=== PATIENT | female | born 1970 | race Caucasian/White ===

== ENCOUNTER 2017-07-20 10:05 | Emergency (ER) | payer OTHER, BC, SELFPAY ==
[2017-07-20 10:06] VITALS: BP 133/83; PULSE 106; RESP 18; TEMP 37.7; O2SAT 99; BMI 31.6
--- NOTE | 2017-07-20 10:21 | RAD_ITS ---
STUDY: X-RAY CHEST REASON FOR EXAM: Female, 47 years old. Cough and fever. TECHNIQUE: PA and lateral views of the chest. COMPARISON: None. FINDINGS: The lungs are clear and expanded. There is no demonstrated pleural abnormality. Normal size heart. Normal mediastinum and kodak. Normal visualized pulmonary arteries. Normal visualized aortic arch and descending thoracic aorta. Normal visualized thoracic spine. Normal visualized ribs, clavicles, and shoulders. There is no demonstrated abnormality of the visualized soft tissue structures of the upper abdomen. RAD/Chest PA and Lateral IMPRESSION: Normal x-ray examination of the chest. Electronically Signed: Dominguez Yousif MD at 11:07 EDT Tel [phone], Service support ,
--- NOTE | 2017-07-20 10:22 | ED.VISSUMM ---
- ER Visit Summary Date of Service: 07/20/17 Chief Complaint: Cough, fever and chills History of Present Illness: The patient is a 47 F having M past medical history. Patient states she started getting a sore throat yesterday and a fever as high as 100. Today was coughing and states I feel like hell. Denies nausea, vomiting, diarrhea or dysuria. No abdominal pain. Physical Examination: Middle-aged female no acute distress vital signs are stable temperature 99.9 pulse is 90% room air no signs of hypoxia. No distress. H EENT exam normal. Posterior pharynx normal. Erythema no exudate. No trouble swallowing or breathing. Neck nontender no meningismus. No lymphadenopathy. Lungs dry hacking cough but no rales, rhonchi or wheezing. Equal symmetrical. Heart regular rhythm rate about 105 no murmur. Chest wall nontender. Abdomen soft nontender. Back nontender. Moving all 4 extremities. Neurovascular intact. Calves nontender no edema no cords. Skin no rash. Neurologic exam normal. Test Results: Chest x-ray AP and lateral views no acute abnormality. No pneumonia. Emergency Department Course and Treatment: Treated with p.o. Tylenol. Treatment Plan: Exam unchanged at 1108. Patient's history and exam and sudden onset of symptoms are consistent with influenza. Disposition: Discharge Impression: Acute viral respiratory tract infection (Influenza) This note was generated with Centrafuse dictation software. It may contain incorrect words, spelling, and punctuation that were not noted in review of the chart prior to signing ED Disposition - Plan for ED Patient: Chief Complaint: Fever Referrals: Ferny Garvin DO [Primary Care Provider] -
[2017-07-20] MEDS: Acetaminophen 500 MG Tablet 1000 MG PO (10:28)
--- NOTE | 2017-07-20 11:09 | ED.DEP ---
ED Disposition - Plan for ED Patient: Disposition: Home or Assisted Living Chief Complaint: Fever Instructions: ED Flu Referrals: Ferny Garvin DO [Primary Care Provider] - 3-5 Days if not improving Additional Instructions: Plenty of fluids and rest. Alternate Tylenol and Motrin every 2-4 hours for fever and body aches. You have a viral respiratory infection most likely influenza. This should progressively started getting better in the next 24-72 hours. No signs of pneumonia and your chest x-ray or on your lung exam.
== END 2017-07-20 11:28 | disposition home or self-care (01) ==
PROVIDERS: Emergency Provider Emergency Medicine; Family Provider Family Medicine; PCP Family Medicine
DX: J11.1 Influenza due to unidentified influenza virus with other respiratory manifestations (principal)
CPT/HCPCS: 71046; 99282

== ENCOUNTER → 2018-01-29 12:36 | Outpatient (CLI) | payer OTHER, BC, SELFPAY ==
--- NOTE | 2018-01-29 13:00 | MRI_ITS ---
STUDY: MRI BRAIN WITHOUT CONTRAST REASON FOR EXAM: Female, 47 years old. New onset of retro-orbital headaches TECHNIQUE: Standardized multiplanar fat and water weighted pulse sequences were obtained. COMPARISON: None. FINDINGS: Normal size of the ventricles and extra-axial spaces for the patient's age. Normal white matter tracts of the supratentorial brain. Normal bilateral basal ganglia. Normal thalami. There is no extra-axial fluid accumulation. Normal flow voids within the major intracranial circulation suggesting patency by spin echo criteria. Partial empty sella deformity of uncertain clinical significance.. Normal, infundibular stalk, optic chiasm and hypothalamus. Normal tectal plate and pineal gland. Normal midbrain, alysia and medulla. Normal cerebellum. Normal basal cisterns. Normal bilateral temporal bones. Normal bilateral internal auditory canals. No demonstrated orbital abnormality, within the constraints of a routine brain study. There is minor mucosal thickening of the maxillary and ethmoid sinuses. Normal calvarium and skull base. Normal visualized soft tissue structures. Normal visualized upper cervical spine. MRI/Brain without Contrast IMPRESSION: Partial empty sella deformity of uncertain clinical significance otherwise normal unenhanced MRI of the brain. Minor chronic mucosal thickening of the maxillary and ethmoid sinuses. Electronically Signed: Edwin Locke MD at 19:11 EST , Service support ,
--- OUTSIDE RECORDS SUMMARY | 2018-03-26 11:27 | XMS RPT_ITS ---
:1970 Author Organization [facility] Care Team Providers Name Role Phone Ferny Garvin Primary Care Unavailable Edwin Woods Attending Unavailable Ferny Garvin Attending Unavailable Ferny Garvin Referring Unavailable Ferny Garvin Primary Care Unavailable Noah Jones Consulting Unavailable PROBLEMS PROBLEMS No Problem Records FoundPROCEDURES PROCEDURES No Procedure Records FoundRESULTS RESULTS BRAIN WITHOUT Observed: 01/29/2018 Status: F Source: [place] CONTRAST 12:40 PM [facility] REPOSITORY [facility] Imaging Services [address] [place] [address] Brain without Contrast MR#: [id number] Acct: [id number] Name: GURDEEP GRADY Rep #: [id number] : 1970 F 47 From: Edwin Locke MD PCP: Ferny Garvin DO Status: REG CLI Study: Brain without Contrast Date of Exam: 01/29/18 Exam# [id number] Ordering Dr: Ferny Garvin DO STUDY: MRI BRAIN WITHOUT CONTRAST REASON FOR EXAM: Female, 47 years old. New onset of retro-orbital headaches TECHNIQUE: Standardized multiplanar fat and water weighted pulse sequences were obtained. COMPARISON: None. FINDINGS: Normal size of the ventricles and extra-axial spaces for the patient's age. Normal white matter tracts of the supratentorial brain. Normal bilateral basal ganglia. Normal thalami. There is no extra-axial fluid accumulation. Normal flow voids within the major intracranial circulation suggesting patency by spin echo criteria. Partial empty sella deformity of uncertain clinical significance.. Normal, infundibular stalk, optic chiasm and hypothalamus. Normal tectal plate and pineal gland. Normal midbrain, alysia and medulla. Normal cerebellum. Normal basal cisterns. Normal bilateral temporal bones. Normal bilateral internal auditory canals. No demonstrated orbital abnormality, within the constraints of a routine brain study. There is minor mucosal thickening of the maxillary and ethmoid sinuses. Normal calvarium and skull base. Normal visualized soft tissue structures. Normal visualized upper cervical spine. MRI/Brain without Contrast IMPRESSION: Partial empty sella deformity of uncertain clinical significance otherwise normal unenhanced MRI of the brain. Minor chronic mucosal thickening of the maxillary and ethmoid sinuses. Electronically Signed: Edwin Locke MD at 19:11 EST , Service support , CC: Ferny Garvin DO Community Education Specialist: Signed EMERGENCY DEPARTMENT Observed: 07/20/2017 Status: F Source: ANCHORAGE SUMMARY 4:38 PM [facility] REPOSITORY [facility] Medical Records Department [address] [place] [address] Emergency Department Summary 07/20/17 1022 MR#: [id number] Acct: [id number] Name: GURDEEP GRADY Rep #: [id number] : 1970 47 From: Edwin Woods MD PCP: Ferny Garvin DO Status: DEP ER - ER Visit Summary Date of Service: 07/20/17 Chief Complaint: Cough, fever and chills History of Present Illness: The patient is a 47 F having M past medical history. Patient states she started getting a sore throat yesterday and a fever as high as 100. Today was coughing and states I feel like hell. Denies nausea, vomiting, diarrhea or dysuria. No abdominal pain. Physical Examination: Middle-aged female no acute distress vital signs are stable temperature 99.9 pulse is 90% room air no signs of hypoxia. No distress. H EENT exam normal. Posterior pharynx normal. Erythema no exudate. No trouble swallowing or breathing. Neck nontender no meningismus. No lymphadenopathy. Lungs dry hacking cough but no rales, rhonchi or wheezing. Equal symmetrical. Heart regular rhythm rate about 105 no murmur. Chest wall nontender. Abdomen soft nontender. Back nontender. Moving all 4 extremities. Neurovascular intact. Calves nontender no edema no cords. Skin no rash. Neurologic exam normal. Test Results: Chest x-ray AP and lateral views no acute abnormality. No pneumonia. Emergency Department Course and Treatment: Treated with p.o. Tylenol. Treatment Plan: Exam unchanged at 1108. Patient's history and exam and sudden onset of symptoms are consistent with influenza. Disposition: Discharge Impression: Acute viral respiratory tract infection (Influenza) This note was generated with Yatango dictation software. It may contain incorrect words, spelling, and punctuation that were not noted in review of the chart prior to signing ED Disposition - Plan for ED Patient: Chief Complaint: Fever Referrals: Ferny Garvin, DO [Primary Care Provider] - What to do if you have Problems For any increased pain, shortness of breath, bleeding, nausea or vomiting, chest pain, or any unexpected problems, contact your Primary Care Provider. Call [facility] ([phone]) or report to the closest Emergency Room. Call 911 if necessary. 07/20/17 2748 <Electronically signed by Edwin Woods MD> Date Edwin Woods MD Cosigner Signature (If Indicated): Date CC: Ferny Garvin DO DISCHARGE INSTRUCTION Observed: 07/20/2017 Status: F Source: [facility]AGE 4:38 PM [facility] Medical Records Department [address] [place] [address] Discharge Instruction 07/20/17 1109 MR#: [id number] Acct: [id number] Name: GURDEEP GRADY Rep #: [id number] : 1970 47 From: Edwin Woods MD PCP: eFrny Garvin DO Status: [facility] ER ED Disposition - Plan for ED Patient: Disposition: Home or Assisted Living Chief Complaint: Fever Instructions: ED Flu Referrals: Ferny Garvin DO [Primary Care Provider] - 3-5 Days if not improving Additional Instructions: Plenty of fluids and rest. Alternate Tylenol and Motrin every 2-4 hours for fever and body aches. You have a viral respiratory infection most likely influenza. This should progressively started getting better in the next 24-72 hours. No signs of pneumonia and your chest x-ray or on your lung exam. What to do if you have Problems For any increased pain, shortness of breath, bleeding, nausea or vomiting, chest pain, or any unexpected problems, contact your Primary Care Provider. Call [employer] [facility] ([phone]) or report to the closest Emergency Room. Call 911 if necessary. 07/20/17 1638 <Electronically signed by Edwin Woods MD> Date Edwin Woods MD Cosigner Signature (If Indicated): Date CC: Ferny Garvin DO CHEST PA AND LATERAL Observed: 07/20/2017 Status: F Source: ANCHORAGE 10:21 AM [facility] REPOSITORY [facility] Imaging Services [address] [place] [address] Chest PA and Lateral MR#: [id number] Acct: [id number] Name: GURDEEP GRADY Jaxon Rep #: [id number] : 1970 F 47 From: Dominguez Yousif MD PCP: Ferny Garvin DO Status: REG ER Study: Chest PA and Lateral Date of Exam: 07/20/17 Exam# [id number] Ordering Dr: Edwin Woods MD STUDY: X-RAY CHEST REASON FOR EXAM: Female, 47 years old. Cough and fever. TECHNIQUE: PA and lateral views of the chest. COMPARISON: None. FINDINGS: The lungs are clear and expanded. There is no demonstrated pleural abnormality. Normal size heart. Normal mediastinum and kodak. Normal visualized pulmonary arteries. Normal visualized aortic arch and descending thoracic aorta. Normal visualized thoracic spine. Normal visualized ribs, clavicles, and shoulders. There is no demonstrated abnormality of the visualized soft tissue structures of the upper abdomen. RAD/Chest PA and Lateral IMPRESSION: Normal x-ray examination of the chest. Electronically Signed: Dominguez Yousif MD at 11:07 EDT Tel [phone], Service support , CC: Ferny Garvin DO; Edwin Woods MD Community Education Specialist: Signed ALLERGIES ALLERGIES DATE TYPE / CODE NAME / CODE REACTION SEVERITY SOURCE 07/20/2017 Drug morphine/F00 Hives Unknown [facility] Allergy/4160 [id number]([facility] [address]451(SNOMED RM) Repository CT) ENCOUNTERS ENCOUNTERS ADMIT/DISCHARGE ACCOUNT ADMITTING ENCOUNTER LOCATION SOURCE NUMBER CLASS 01/29/2018 [id number] Ambulatory [place] 1 [facility] ing:MRI Repository 07/20/2017/ [id number] Emergency [place] 8 0 [facility] ing:ED Repository PAYERS PAYERS ENCOUNTER GUARANTOR PAYER SUBSCRIBER SOURCE 01/29/2018 GURDEEP A Primary GURDEEP A [place] [id number] N Insurance:MEDICAL MELEGARIDOB: [facility] [id number] Number: Repository [address]Dmr: [phone] [id number] [phone] () Date:6997-46-01FLC [facility] [address] [address], [place] [address]IH: 01/29/2018 Secondary JOSE ENRIQUE [place] Insurance:ANTHEMPolic MELEGARIDOB: Community y Number: [id number] [facility] [id number] Repository Date:6845-90-08BF [address] [place] [address]VG: 01/29/2018 Tertiary NOT GIVENUNK [place] Insurance:SELF PAY [facility] Number: Effective Repository Date:2018-01-26 07/20/2017 Jose Enrique Primary GURDEEP A [place] [id number] N Insurance:MEDICAL MELEGARIDOB: [facility] [id number] Number: Repository [id number]: [phone] [id number] [phone] () Date:5483-74-63EKF [facility] [address] [address], [place] [address]RS: 07/20/2017 Secondary Jose Enrique [place] Insurance:ANTHEMPolic MelegariDOB: Community y Number: [id number] St[address] Vincent [facility] Medical [id number] Repository Date:9528-98-48GF [address] [place] [address]OQ: 07/20/2017 Tertiary NOT GIVENUNK [place] Insurance:SELF PAY [facility] Number: Effective Repository Date:2017-07-20
== END ==
PROVIDERS: Family Provider Family Medicine; PCP Family Medicine; Referring Provider Family Medicine; Visit Provider Family Medicine
DX: R51 Headache (principal)
CPT/HCPCS: 70551

== ENCOUNTER → 2018-03-18 16:18 | Outpatient (CLI) | payer OTHER, BC, SELFPAY ==
--- NOTE | 2018-03-18 16:22 | BI_ITS ---
MAMMOGRAPHY - BILATERAL SCREENING REASON FOR EXAM: Female, 47 years old. Routine annual screening examination. PERTINENT HISTORY: Non-contributory. TECHNIQUE: Digital bilateral breast karla (3D mammographic acquisition) in the CC and MLO projections. 2-D mediolateral oblique (MLO) and craniocaudad (CC) views of both breasts were obtained. CAD: Full Field Digital Mammography with Computer Added Detection was performed. COMPARISON: None. Baseline examination. FINDINGS: Breast Composition: The breasts are extremely dense, which lowers the sensitivity of mammography. There are no dominant masses or suspicious calcifications. No other significant abnormalities are identified. BI/SCREENING MAMM (CAD), BILAT IMPRESSION: Negative screening mammogram. Yearly followup mammogram recommended. (A) ASSESSMENT CATEGORY: BIRADS Category 1: Negative. A letter regarding these results will be sent to the patient by the facility within 30 days. Approximately 10% of breast cancers are not detected by mammography. A normal mammogram should not delay biopsy of a clinically suspicious abnormality. [id number] Electronically Signed: Dominguez Yousif MD at 7:54 EST Tel [phone], Service support ,
--- OUTSIDE RECORDS SUMMARY | 2018-05-23 11:48 | XMS RPT_ITS ---
:1970 Author Organization OHIP Care Team Providers Name Role Phone Ferny Garvin Attending Unavailable Ferny Garvin Referring Unavailable Ferny Garvin Primary Care Unavailable Ferny Garvin Primary Care Unavailable Edwin Woods Attending Unavailable Ferny Garvin Attending Unavailable Ferny Garvin Referring Unavailable Ferny Garvin Primary Care Unavailable Noah Jones Consulting Unavailable PROBLEMS PROBLEMS No Problem Records FoundPROCEDURES PROCEDURES No Procedure Records FoundRESULTS RESULTS SCREENING MAMM (CAD), Observed: 03/18/2018 Status: F Source: TRISHA BILAT 4:22 PM [facility] Imaging Services [address] [place] [address] SCREENING MAMM (CAD), BILAT MR#: [id number] Acct: [id number] Name: GURDEEP GRADY Rep #: [id number] : 1970 F 47 From: Dominguez Yousif MD PCP: Ferny Garvin DO Status: REG CLI Study: SCREENING MAMM (CAD), BILAT Date of Exam: 03/18/18 Exam# [id number] Ordering Dr: Ferny Garvin DO MAMMOGRAPHY - BILATERAL SCREENING REASON FOR EXAM: Female, 47 years old. Routine annual screening examination. PERTINENT HISTORY: Non-contributory. TECHNIQUE: Digital bilateral breast karla (3D mammographic acquisition) in the CC and MLO projections. 2-D mediolateral oblique (MLO) and craniocaudad (CC) views of both breasts were obtained. CAD: Full Field Digital Mammography with Computer Added Detection was performed. COMPARISON: None. Baseline examination. FINDINGS: Breast Composition: The breasts are extremely dense, which lowers the sensitivity of mammography. There are no dominant masses or suspicious calcifications. No other significant abnormalities are identified. BI/SCREENING MAMM (CAD), BILAT IMPRESSION: Negative screening mammogram. Yearly followup mammogram recommended. (A) ASSESSMENT CATEGORY: BIRADS Category 1: Negative. A letter regarding these results will be sent to the patient by the facility within 30 days. Approximately 10% of breast cancers are not detected by mammography. A normal mammogram should not delay biopsy of a clinically suspicious abnormality. [id number] Electronically Signed: Dominguez Yousif MD at 7:54 EST Tel [phone], Service support , CC: Ferny Garvin DO Payment Processor: Signed BRAIN WITHOUT Observed: 01/29/2018 Status: F Source: TRISHA CONTRAST 12:40 PM [facility] Imaging Services [facility] [place] [address] Brain without Contrast MR#: [id number] Acct: [id number] Name: GURDEEP GRADY Jaxon Rep #: [id number] : 1970 F 47 From: Edwin Locke MD PCP: Freny Garvin DO Status: REG CLI Study: Brain without Contrast Date of Exam: 01/29/18 Exam# [id number] Ordering Dr: Ferny Garvin DO STUDY: MRI [...] Service support , CC: Ferny Garvin DO Payment Processor: Signed EMERGENCY DEPARTMENT Observed: 07/20/2017 Status: F Source: [place] SUMMARY 4:38 PM [facility] Medical Records Department [address] [place] [address] Emergency Department Summary 07/20/17 1022 MR#: [id number] Acct: [id number] Name: GURDEEP GRADY Rep #: [id number] : 1970 47 From: Edwin Woods MD [...] infection (Influenza) This note was generated with ideaTree - innovate | mentor | invest dictation software. It may contain incorrect words, spelling, and punctuation that were not noted in review of the chart prior to signing ED Disposition - Plan for ED Patient: Chief Complaint: Fever Referrals: Ferny Garvin DO [Primary Care Provider] - What to do if you have Problems For any increased pain, shortness of breath, bleeding, nausea or vomiting, chest pain, or any unexpected problems, contact your Primary Care Provider. Call [employer] Registry ([phone]) or report to the closest Emergency Room. Call 911 if necessary. 07/20/17 1126 <Electronically signed by Edwin Woods MD> Date Edwin Woods MD Cosigner Signature (If Indicated): Date CC: Ferny Garvin DO DISCHARGE INSTRUCTION Observed: 07/20/2017 Status: F Source: TRISHA 4:38 PM [facility] Medical Records Department [address] [place] [address] Discharge Instruction 07/20/17 1109 MR#: [id number] Acct: [id number] Name: GURDEEP GRADY Rep #: [id number] : 1970 47 From: Edwin Woods MD PCP: Ferny Garvin DO Status: DEP ER ED Disposition - Plan for ED [...] problems, contact your Primary Care Provider. Call [facility] Registry ([phone]) or report to the closest Emergency Room. Call 911 if necessary. 07/20/17 9731 <Electronically signed by Edwin Woods MD> Date Edwin Woods MD Cosigner Signature (If Indicated): Date CC: Ferny Garvin DO CHEST PA AND LATERAL Observed: 07/20/2017 Status: F Source: TRISHA 10:21 AM [facility] Imaging Services [address] [place] [address] Chest PA and Lateral MR#: [id number] Acct: [id number] Name: GURDEEP GRADY Rep #: [id number] : 1970 F 47 From: Dominguez Yousif MD PCP: Ferny Garvin DO Status: REG ER Study: Chest PA and Lateral Date of Exam: 07/20/17 Exam# [id number] Ordering Dr: Edwin Woods MD STUDY: X-RAY [...] Dominguez Yousif MD at 11:07 EDT Tel [phone], Service support , CC: Ferny Garvin DO; Edwin Woods MD Payment Processor: Signed ALLERGIES ALLERGIES DATE TYPE / CODE NAME / CODE REACTION SEVERITY SOURCE 07/20/2017 Drug morphine/F00 Hives Unknown [facility] Allergy/4160 [id number]([facility] [address](SNOMED RM) Repository CT) ENCOUNTERS ENCOUNTERS ADMIT/DISCHARGE ACCOUNT ADMITTING ENCOUNTER LOCATION SOURCE NUMBER CLASS 03/18/2018 [id number] Ambulatory [address] ing:OPBI Repository 01/29/2018 [id number] Ambulatory [place] 1 [facility] ing:MRI Repository 07/20/2017/ [id number] Emergency [place] 8 0 [facility] ing:ED Repository PAYERS PAYERS ENCOUNTER GUARANTOR PAYER SUBSCRIBER SOURCE 03/18/2018 JOSE ENRIQUE Primary GURDEEP A Tr[place] [id number] N Insurance:MEDICAL MELEGARIDOB: [facility] [id number] Number: Repository [address]Kel: 330 [id number] [phone] () Date:7426-16-19[address] [address], [place] [address]AD: 03/18/2018 Secondary JOSE ENRIQUE [place] Insurance:ANTHEMPolic MELEGARIDOB: Community y Number: [id number] Juan Regional Medical [id number] Repository Date:6474-52-73WD [address] [place] [address]NK: 03/18/2018 Tertiary NOT GIVENUNK [place] Insurance:SELF PAY [facility] Number: Effective Repository Date:2018-01-26 01/29/2018 GURDEEP A Primary GURDEEP Pat[place] [id number] N Insurance:MEDICAL MELEGARIDOB: [id number] [place] Number: Repository [address]Ncf: 330 [id number] [phone] (HP) Date:6087-74-81[address] [address], [place] [address]ZY: 01/29/2018 Secondary JOSE ENRIQUE [place] Insurance:ANTHEMPolic MELEGARIDOB: Community y Number: [id number] Juan Regional Medical [id number] Repository Date:7628-39-18ZY [address] [place] [address]IJ: 01/29/2018 Tertiary NOT GIVENUNK [place] Insurance:SELF PAY [facility] Number: Effective Repository Date:2018-01-26 07/20/2017 Jose Enrique Primary GURDEEP A [id number] [address] Insurance:MEDICAL MELEGARIDOB: [address] [place] [facility] [id number] Number: Repository [id number]: [phone] [id number] [phone] (HP) Date:9331-19-67[address] [address], [place] [address]SC: 07/20/2017 Secondary Jose Enrique Morales Insurance:ANTHEMPolic MelegariDOB: Community y Number: [id number] [id number] Repository Date:0363-48-72[address] [address]QWS[place], [place] [address]HH: 07/20/2017 Tertiary NOT GIVENSAQIB [place] Insurance:SELF PAY [facility] Number: Effective Repository Date:2017-07-20"
== END ==
PROVIDERS: Family Provider Family Medicine; PCP Family Medicine; Referring Provider Family Medicine; Visit Provider Family Medicine
DX: Z12.31 Encounter for screening mammogram for malignant neoplasm of breast (principal)
CPT/HCPCS: 77063; 77067

== ENCOUNTER → 2020-02-29 08:45 | Outpatient (CLI) | payer OTHER, BC, SELFPAY ==
[2020-02-29 09:53] LABS: Anion Gap 3 (5-15); BUN 11 mg/dL (7-18); BUN/Creat Ratio 10.6 RATIO (10-20); Calcium,Total 9.1 mg/dL (8.5-10.1); Chloride 109 mmol/L (98-107); Creatinine, Serum 1.04 mg/dL (0.55-1.02); EST Glomerular Filtration Rate 59 mL/min (>60); Est Glom Filt Rate - Afr Amer 72 mL/min (>60); Glucose 94 mg/dL (74-106); Potassium 3.7 mmol/L (3.5-5.1); Sodium Level 142 mmol/L (136-145)
== END ==
PROVIDERS: PCP Family Medicine; Referring Provider Student in an Organized Health Care Education/Training Program; Visit Provider Student in an Organized Health Care Education/Training Program
DX: I10 Essential (primary) hypertension (principal); R94.31 Abnormal electrocardiogram [ECG] [EKG]
CPT/HCPCS: 36415; 80048

== ENCOUNTER 2021-12-05 21:31 | Emergency (ER) | payer OTHER, BC, SELFPAY ==
[2021-12-05 21:33] VITALS: BP 164/102; PULSE 113; RESP 15; TEMP 37.9; O2SAT 98; BMI 33.2
--- NOTE | 2021-12-05 22:14 | EX.ED.DYSGE1 ---
HPI History of Present Illness Chief Complaint: Confusion Informant: patient and friend Narrative Narrative: Since the age she started feeling bad yesterday. She has had myalgias. She started with a sore throat. She has developed a nonproductive cough. She has occasionally heard wheezing. No nausea vomiting diarrhea or urinary symptoms. Today she started to get worse and get fevers. She was evidently talking to her daughter this evening and seemed like she was somewhat confused. The daughter called a friend who went over and checked on her. The friend states that patient recognized her but could not come up with her name and just seem overall confused. Evidently her temperature was over 103 at the time. Patient's temperature is now down and she is much more normal and making sense that she usually does. She has had COVID vaccines. 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 She has been around some people with COVID but it seems like that is not real recently though. No new medications. [facility] Medical History Bundle branch block Hypertension Migraine Home Medications amlodipine 10 mg-valsartan 160 mg tablet 10 - 160 tab PO DAILY 12/05/21 [History Last Taken Unknown] metoprolol succinate 25 mg tablet,extended release 24 hr 25 mg PO DAILY 12/05/21 [History Last Taken Unknown] phentermine 37.5 mg tablet 37.5 mg PO DAILY 12/05/21 [History Last Taken Unknown] Allergy/AdvReac Type Severity Reaction Status Date / Time morphine Allergy Hives Verified 12/05/21 21:42 Surgical History History of cholecystectomy Social History Smoking Status: Never smoker ROS ROS ED Constitutional Constitutional ED: Reports chills, fever(s) and subjective Eyes Eyes: Denies blurry vision or change in vision ENT ENT ED: Denies rhinorrhea Cardiovascular Cardiovascular: Denies chest pain Respiratory/Chest Respiratory/Chest: Reports cough and dyspnea; Denies sputum Gastrointestinal Gastrointestinal: Denies abdominal pain, diarrhea, nausea or vomiting Genitourinary Genitourinary ED: Denies dysuria or hematuria Musculoskeletal Musculoskeletal: Reports myalgias Neurologic Neurologic: Reports headache(s) and other Details: Headache occurs with cough. Endocrine Endocrinology: Denies polydipsia or polyuria Hematologic/Lymphatic Hematologic/Lymphatic: Denies easy bleeding or easy bruising Allergic/Immunologic Allergic/Immunologic ED: Denies urticaria EXAM Physical Exam Const Vital Signs: 12/05/21 21:33 12/05/21 23:38 12/05/21 23:45 Temperature 100.3 F H 99.8 F H 99.8 F H Temperature Source Temporal Oral Pulse Rate 113 H 121 H 120 H Respiratory Rate 15 18 18 Blood Pressure 164/102 H 146/92 H 146/92 H Blood Pressure Mean 122 110 Pulse Ox 98 100 94 Oxygen Delivery Method Room Air Room Air Positive well nourished and well developed General Appearance ED: well developed and NAD; Negative for cyanotic or diaphoretic HEENT Reports dry mucous membranes Mouth ED: Yes dry mucous membranes Mouth: dry mucous membranes Eyes PERRL and EOMs intact bilaterally General Eye ED: Negative for scleral icterus Neck supple Neck Narrative: Patient can move neck up down left and right without any pain. Chest Wall inspection of chest normal Resp normal respiratory effort and clear to auscultation bilaterally Resp Narrative: Lungs are clear. But deep breaths to bring out a cough. Cardio Rate: tachycardic GI normal to inspection, nondistended, normoactive bowel sounds, non-tender and non-distended Back/Spine no CVA tenderness Extremity normal to inspection General Extremety ED: Negative for edema or tenderness General Extremity: Negative for edema Neuro oriented x3 Neuro Narrative: Patient is alert and oriented person place time and friend. She has the sense of humor that she normally does have per her friend. Sensorium / Orientation: alert Psych mental status grossly normal Skin no rashes or lesions noted Skin Narrative: Skin is warm to the touch but no rash noted MDM MDM MDM Narrative Medical decision making narrative: Patient's blood work showed essentially normal CBC. Electrolytes showed minimally decreased potassium and minimally elevated creatinine. Lactic acid was within normal. Overall electrolytes were reasonable. Urine was clean. Chest x-ray did not show any infiltrative process but did show arthritis. We had a discussion regarding risk benefits and options of Paxil bid. It was agreed not to use this. I will get her a little bit of Toradol for the myalgias she still has. Plan will be going home. We discussed care at home and reasons to return. Lab Data Attestation: I reviewed the patient's lab results. Labs: Laboratory Results - last 24 hr 12/05/21 12/05/21 12/05/21 22:23 22:23 22:23 WBC 5.2 RBC 4.51 Hgb 13.2 Hct 38.8 MCV 86.0 MCH 29.3 MCHC 34.0 RDW Std Deviation 41.7 RDW Coeff of Anson 13.3 Plt Count 241 MPV 10.4 Immature Gran % (Auto) 0.400 Neut % (Auto) 75.7 H Lymph % (Auto) 7.6 L Rawlins % (Auto) 14.9 H Eos % (Auto) 0.8 Baso % (Auto) 0.6 Absolute Neuts (auto) 4.0 Absolute Lymphs (auto) 0.40 L Nucleated RBC % 0 Differential Comment SCANNED Sodium 142 Potassium 3.4 L Chloride 110 H Carbon Dioxide 25.0 Anion Gap 7 BUN 8 Creatinine 1.06 H Estim Creat Clear Calc 59.69 Est GFR (MDRD) Af Amer 70 Est GFR (MDRD) Non-Af 58 L BUN/Creatinine Ratio 7.5 L Glucose 106 Lactic Acid 1.9 Calcium 8.8 Urine Color Urine Clarity Urine pH Ur Specific Sublette Urine Protein Urine Glucose (UA) Urine Ketones Urine Occult Blood Urine Nitrite Urine Bilirubin Urine Urobilinogen Ur Leukocyte Esterase Urine RBC Urine WBC Ur Squamous Epith Cells Urine Bacteria Urine Mucus 12/05/21 22:23 WBC RBC Hgb Hct MCV MCH MCHC RDW Std Deviation RDW Coeff of Anson Plt Count MPV Immature Gran % (Auto) Neut % (Auto) Lymph % (Auto) Rawlins % (Auto) Eos % (Auto) Baso % (Auto) Absolute Neuts (auto) Absolute Lymphs (auto) Nucleated RBC % Differential Comment Sodium Potassium Chloride Carbon Dioxide Anion Gap BUN Creatinine Estim Creat Clear Calc Est GFR (MDRD) Af Amer Est GFR (MDRD) Non-Af BUN/Creatinine Ratio Glucose Lactic Acid Calcium Urine Color Straw Urine Clarity Clear Urine pH 8.0 Ur Specific [place]lette 1.010 Urine Protein Negative Urine Glucose (UA) Normal Urine Ketones Negative Urine Occult Blood Negative Urine Nitrite Negative Urine Bilirubin Negative Urine Urobilinogen Normal Ur Leukocyte Esterase Negative Urine RBC 0 SEEN Urine WBC 0 SEEN Ur Squamous Epith Cells 0-5 SEEN Urine Bacteria RARE Urine Mucus 0 SEEN Radiography Diagnostic Testing: Clinical Impression(s) from Imaging Studies Chest X-Ray 12/05/21 22:43 IMPRESSION: Degenerative changes, as described above. No demonstrated acute cardiopulmonary process. No major interval change Electronically Signed: Travis DineshDO at 23:11 EDT Reading Location ID and State: [address] [place] [address] Tel [phone], Service support , Chest x-ray was looked at by me and read by radiology. It shows degenerative changes but no acute cardiopulmonary process. Discharge Plan Triage Chief Complaint: Confusion ED Provider: Jah Gomez Dx/Rx/DC Orders Clinical Impression: COVID-19, Febrile Instructions: Coronavirus Disease 2019 (COVID-19): Caring for Yourself or Others Prescriptions: No Action phentermine 37.5 mg tablet 37.5 mg PO DAILY Label Comments: take 1 tablet by mouth once daily metoprolol succinate 25 mg tablet extended release 24 hr 25 mg PO DAILY Label Comments: take 1 tablet by mouth once daily amlodipine-valsartan 10-160 mg tablet 10 - 160 tab PO DAILY Label Comments: take 1 tablet by mouth once daily Primary Care Provider: Lyle Venegas Referrals: Lyle Venegas DO [Primary Care Provider] - 1 Week if not improving Disposition Disposition: Home, Self Care Discharge Date/Time: 12/05/21 23:51
[2021-12-05] MEDS: Acetaminophen 500 MG Tablet 1000 MG PO (22:28)
[2021-12-05] MEDS: 0.9% Normal Saline 1,000 ML 1000 ML IV (22:28)
[2021-12-05 22:33] LABS: Mucous, Urine 0 SEEN /hpf (<or=2+); Red Blood Cells-Urine 0 SEEN /hpf (0-5); White Blood Cells 0 SEEN /hpf (0-5)
[2021-12-05 22:34] LABS: Basophil# 0.03 X10^3/uL; Basophil% 0.6 % (0-1); Eosinophil# 0.04 X10^3/uL; Eosinophils% 0.8 % (0-5); Hematocrit 38.8 % (37-47); Hemoglobin 13.2 g/dL (12.0-15.0); Lymphocyte % 7.6 % (19-41); Mean Corpuscular Hgb 29.3 pg (27.0-32.0); Mean Platelet Vol. 10.4 fl (6.2-12.0); Monocyte# 0.78 X10^3/uL; Monocyte% 14.9 % (0-10); NRBC Flagged by Analyzer 0 % (0-5); Neutrophil # 3.96 X10^3/uL (2.7-7.7); Neutrophil % 75.7 % (47-70); POSITIVE DIFFERENTIAL YES; Platelet Count 241 K/mm3 (150-450); RBC Distribution Width CV 13.3 % (11.6-14.6); RBC Distribution Width SD 41.7 fl (35.1-43.9); Red Blood Count 4.51 M/mm3 (4.2-5.4); White Blood Count 5.2 K/mm3 (4.4-11.0)
[2021-12-05 22:38] LABS: Differential Indicated SCAN CRITERIA MET
[2021-12-05 22:39] LABS: Color, Urine Straw (Yellow); Glucose, Dipstick Normal (Normal); Ketone-Dipstick Negative (Negative); Leukocyte Esterase-Dipstick Negative /ul (Negative); Nitrite-Dipstick Negative (Negative); Occult Blood-Urine Negative /ul (Negative); Protein-Dipstick Negative (Negative); Urine Bilirubin Dipstick Negative (Negative); Urine Clarity Clear (Clear); Urine Urobilinogen Normal (Normal)
--- NOTE | 2021-12-05 22:43 | RAD_ITS ---
STUDY: X-RAY CHEST REASON FOR EXAM: Female, 51 years old. Cough and fever. Confusion began at 1999. TECHNIQUE: PA and lateral views of the chest. COMPARISON: A 2007 FINDINGS: The lungs are clear and expanded. There is no demonstrated pleural abnormality. Normal size heart. Normal mediastinum and [place]. Normal visualized pulmonary arteries. There is atherosclerotic calcification of the aortic arch with tortuosity. There are diffuse degenerative changes of the visualized thoracic spine. There is degenerative osteoarthritis of the bilateral shoulders. There is no demonstrated abnormality of the visualized soft tissue structures of the upper abdomen. RAD/Chest PA and Lateral IMPRESSION: Degenerative changes, as described above. No demonstrated acute cardiopulmonary process. No major interval change Electronically Signed: Travis Montiel DO at 23:11 EDT ,
[2021-12-05 22:46] LABS: Bacteria RARE /hpf (None Seen); Squamous Epithelial Cells - UA 0-5 SEEN /hpf (5-10)
[2021-12-05 22:47] LABS: Anion Gap 7 (5-15); BUN 8 mg/dL (7-18); BUN/Creat Ratio 7.5 RATIO (10-20); Calcium,Total 8.8 mg/dL (8.5-10.1); Chloride 110 mmol/L (98-107); Creatinine, Serum 1.06 mg/dL (0.55-1.02); EST Glomerular Filtration Rate 58 mL/min (>60); Est Glom Filt Rate - Afr Amer 70 mL/min (>60); Estimated Creatinine Clearance 59.69 ml/min; Glucose 106 mg/dL (74-106); Potassium 3.4 mmol/L (3.5-5.1); Sodium Level 142 mmol/L (136-145)
[2021-12-05 22:58] LABS: Lactic Acid 1.9 mmol/L (0.4-1.9)
[2021-12-05 23:12] LABS: Differential Comment SCANNED
[2021-12-05 23:38] VITALS: BP 146/92; PULSE 121; RESP 18; TEMP 37.7; O2SAT 100
[2021-12-05 23:45] VITALS: BP 146/92; PULSE 120; RESP 18; TEMP 37.7; O2SAT 94
[2021-12-05] MEDS: Ketorolac 15 MG/ML Vial IV (23:46)
== END 2021-12-05 23:51 | disposition home or self-care (01) ==
PROVIDERS: Emergency Provider Emergency Medicine; PCP Student in an Organized Health Care Education/Training Program; Visit Provider Emergency Medicine
DX: U07.1 COVID-19 (principal); R41.0 Disorientation, unspecified; I10 Essential (primary) hypertension; Z79.899 Other long term (current) drug therapy
CPT/HCPCS: 36415; 71046; 80048; 81001; 83605; 85025; 87040; 87428; 96361; 96374; 99285

== ENCOUNTER → 2022-07-04 | Outpatient (CLI) | payer OTHER, BC, SELFPAY ==
[2022-07-11 11:08] LABS: HPV APTIMA, High Risk Negative (Negative)
== END | disposition home or self-care (01) ==
LOC: LABSPEC 16:35
PROVIDERS: PCP Student in an Organized Health Care Education/Training Program; Referring Provider Advanced Practice Midwife; Visit Provider Advanced Practice Midwife
DX: Z12.4 Encounter for screening for malignant neoplasm of cervix (principal)
CPT/HCPCS: 87624; 88175; G0145

== ENCOUNTER 2022-09-04 07:34 | Day surgery (SDC) | payer OTHER, BC, SELFPAY ==
[2022-09-04] VITALS (7 sets, daily range): BP systolic 108–144; BP diastolic 78–96; PULSE 68–88; RESP 16–18; TEMP 36.4–36.6; O2SAT 93–99; BMI 30.9
[2022-09-04] MEDS: Lactated Ringers 1,000 ML 15 ML IV (08:10)
--- NOTE | 2022-09-04 08:28 | HP.PCM_ITS ---
[facility] - General General Date of Admission: 09/04/22 Date of Service: 09/04/22 Chief Complaint: Screening colonoscopy HPI Narrative GURDEEP GRADY, is a 52 F who presents today for screening colonoscopy. She has not had a colonoscopy in the past. She has a strong family history of colon cancer in her mother and her paternal aunt and uncle. She does not have any bleeding per rectum. She does not have abdominal pain. She denies any chest pain or shortness of breath. Overall she is in very good health. [facility] Medical History (Updated 09/03/22 @ 10:18 by Marisol Roa) Abnormal EKG ADHD Anxiety Bundle branch block Cardiology follow-up encounter Hypertension Migraine Non-smoker Palpitations Post-menopausal Prolonged QT interval Rash Retinal hemorrhage Thyromegaly Home Medications amlodipine 10 mg-valsartan 160 mg tablet 10 - 160 tab PO DAILY 12/05/21 [History Last Taken 09/04/22] metoprolol succinate 25 mg tablet,extended release 24 hr 25 mg PO DAILY 12/05/21 [History Last Taken 09/04/22] Allergy/AdvReac Type Severity Reaction Status Date / Time morphine Allergy Hives Verified 09/03/22 10:06 Family History Mother Colon cancer Father Cancer Heart disease Grandmother Diabetes Aunt Colon cancer Uncle Colon cancer Surgical History History of cholecystectomy Hx of shoulder surgery Social History (Updated 07/04/22 @ 11:14 by Selena Espinosa) adopted: No household members: spouse housing: house number of children: 2 current occupational status: employed 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 - [employer] pets and animals: Yes pets and animals: dog(s) and horse(s) Smoking Status: Never smoker alcohol intake: current alcohol intake frequency: holidays/special occasions only Alcohol type: wine substance use type: does not use additional social history: - Jose Enrique Vital Signs Vital Signs Vital Signs: 09/04/22 07:57 09/04/22 07:57 Temperature 97.9 F Temperature Source Temporal Pulse Rate 80 Respiratory Rate 16 Respiratory Pattern Normal Blood Pressure 133/96 H Blood Pressure Mean 108 Blood Pressure Source Monitor Blood Pressure Position Semi-Fowlers Blood Pressure Location Left Arm Pulse Ox 98 Oxygen Delivery Method Room Air Weight Weight: 191 lb 12.835 oz Body Mass Index (BMI) 30.9 Physical Exam Const alert, oriented x3, no apparent distress, healthy appearing and well nourished General Appearance: cooperative, comfortable, well kempt and well developed Orientation / Consciousness: awake and oriented to person HEENT Head and Scalp: normocephalic and atraumatic Face and Sinus: normal facial exam Mouth: oral and palatal mucosa normal Eyes General Eye: normal appearance of both eyes Neck full ROM Lymph Lymphatic: no lymphadenopathy noted Chest inspection of chest normal Resp normal respiratory effort and no use of accessory muscles Cardio regular rate and regular rhythm GI normal to inspection, nondistended, normoactive bowel sounds, soft to palpation, non-tender, non-distended and no masses Auscultation: normoactive bowel sounds Palpation: soft Percussion: normal to percussion Rectal Exam: visual inspection normal and normal sphincter tone no CVA tenderness Back/Spine no CVA tenderness and normal ROM Extremity normal to inspection Peripheral Pulses: Yes pulses 2+ throughout Skin no rashes or lesions noted General Skin Exam: no breakdown, elasticity normal and turgor normal Neuro oriented x3 Motor Exam: strength 5/5 throughout Psych mental status grossly normal Appearance: grossly normal Attitude: calm Activity / Motor Behavior: appropriate eye contact Speech: normal speech Thought Process: normal thought process Thought Content: normal thought content Attention / Concentration: attention grossly intact Memory / Cognition: memory grossly intact Insight: insight good Judgement: judgement good Assessment & Plan Assessment/Plan (1) Encounter for screening for malignant neoplasm of colon: PLAN: She was explained alternatives, risk, benefits including not withstanding bleeding, infection, sepsis, perforation, need for emergent surgery . She will have an ASA of 2.
--- NOTE | 2022-09-04 08:50 | OP.COLON_ITS ---
Patient Name: Namrata Vargas Procedure Date: 09/04/2022 8:26 AM Date of : 1970 Age: 52 Procedure: Colonoscopy Indications: Screening for colorectal malignant neoplasm Providers: Lan Nunez DO Referring MD: Lan Nunez DO Medicines: Monitored Anesthesia Care Patient Profile: This is a 52 year old female. Refer to note in patient chart for documentation of history and physical. Last Colonoscopy: none. The patient's first colonoscopy is today. Complications: No immediate complications. Procedure: Pre-Anesthesia Assessment: - Prior to the procedure, a History and Physical was performed, and patient medications and allergies were reviewed. The risks and benefits of the procedure and the sedation options and risks were discussed with the patient. All questions were answered and informed consent was obtained. Patient identification and proposed procedure were verified by the physician in the pre-procedure area. Mental Status Examination: alert and oriented. Airway Examination: normal oropharyngeal airway and neck mobility. Prophylactic Antibiotics: The patient does not require prophylactic antibiotics. Prior Anticoagulants: The patient has taken no previous anticoagulant or antiplatelet agents. After reviewing the risks and benefits, the patient was deemed in satisfactory condition to undergo the procedure. The anesthesia plan was to use minimal sedation / analgesia (anxiolysis). Immediately prior to administration of medications, the patient was re-assessed for adequacy to receive sedatives. The heart rate, respiratory rate, oxygen saturations, blood pressure, adequacy of pulmonary ventilation, and response to care were monitored throughout the procedure. The physical status of the patient was re-assessed after the procedure. After I obtained informed consent, the scope was passed under direct vision. Throughout the procedure, the patient's blood pressure, pulse, and oxygen saturations were monitored continuously. The pediatric colonoscope was introduced through the anus and advanced to the cecum, identified by appendiceal orifice and ileocecal valve. The colonoscopy was performed without difficulty. The patient tolerated the procedure well. The quality of the bowel preparation was good. Scope In: 8:34:51 AM Scope Withdrawal Time 0 hours 7 minutes 12 seconds Scope Out: 8:45:24 AM Total Procedure Duration Time 0 hours 10 minutes 33 seconds Findings: The perianal and digital rectal examinations were normal. A few small-mouthed diverticula were found in the recto-sigmoid colon and sigmoid colon. Impression: - Diverticulosis in the recto-sigmoid colon and in the sigmoid colon. - No specimens collected. Recommendation: - Discharge patient to home. - Resume previous diet. - Continue present medications. - Repeat colonoscopy in 5 years for screening purposes. Procedure Code(s): --- Professional --- G0121, Colorectal cancer screening; colonoscopy on individual not meeting criteria for high risk CPT copyright 2017 [employer]. All rights reserved. The codes documented in this report are preliminary and upon reliability manager review may be revised to meet current compliance requirements. Lan Nunez DO 09/04/2022 8:49:50 AM This report has been signed electronically. Number of Addenda: 0 Note Initiated On: 09/04/2022 8:26 AM
--- NOTE | 2022-09-04 08:50 | OP.CCLET_ITS ---
09/04/2022 Lyle Venegas Do Re : Colonoscopy procedure for Namrata Vargas Dear Rubi This procedure was performed on August. My impressions and recommendations are as follows: Impressions : - Diverticulosis in the recto-sigmoid colon and in the sigmoid colon. - No specimens collected. Recommendations : - Discharge patient to home. - Resume previous diet. - Continue present medications. - Repeat colonoscopy in 5 years for screening purposes. My findings are described in the full procedure note, which is enclosed. If I can be of further assistance, please feel free to contact me at . Sincerely, Lan Nunez DO 09/04/2022 8:49:50 AM This report has been signed electronically.
== END 2022-09-04 09:34 | disposition home or self-care (01) ==
LOC: EN 07:35 → AC 07:39
PROVIDERS: PCP Student in an Organized Health Care Education/Training Program; Referring Provider Student in an Organized Health Care Education/Training Program; Visit Provider Internal Medicine Gastroenterology
PROC: 0DJD8ZZ Inspection of Lower Intestinal Tract, Via Natural or Artificial Opening Endoscopic (ICD-10-PCS; CPT 45378; principal; 2022-09-04 08:25)
DX: Z12.11 Encounter for screening for malignant neoplasm of colon (principal); K57.30 Diverticulosis of large intestine without perforation or abscess without bleeding; I45.10 Unspecified right bundle-branch block; I10 Essential (primary) hypertension; Z79.899 Other long term (current) drug therapy; Z80.0 Family history of malignant neoplasm of digestive organs
CPT/HCPCS: 45378; J7120; J2405

== ENCOUNTER → 2022-09-08 | Outpatient (CLI) | payer OTHER, BC, SELFPAY | END | disposition home or self-care (01) | LOC: LABSPEC 15:28 | PROVIDERS: PCP Student in an Organized Health Care Education/Training Program; Referring Provider Otolaryngology; Visit Provider Otolaryngology | DX: J02.9 Acute pharyngitis, unspecified (principal) | CPT/HCPCS: 87070 ==

== ENCOUNTER 2024-02-02 12:31 | Day surgery (SDC) | payer OTHER, BC, SELFPAY ==
[2024-02-02] VITALS (7 sets, daily range): BP systolic 90–126; BP diastolic 65–94; PULSE 86–98; RESP 16; TEMP 36.8–37; O2SAT 92–100; BMI 31.6
--- NOTE | 2024-02-02 13:24 | PCM.HP.BLA ---
History and Physical Date of Admission: 02/02/24 Nurse's Note: Throws up at least once a week. Food triggers, anything doughy, mashed potatoes, pudding.She avoids those foods. This has been going on longer than a year. Has never had an upper scope. Is up to date with colonoscopys. [facility] Medical History (Updated 12/22/23 @ 09:38 by CLIFF Gomez) Retinal hemorrhage, bilateral Intermittent diarrhea Dysphagia H/O echocardiogram Post-menopausal Rash Non-smoker Cardiology follow-up encounter Prolonged QT interval Palpitations Retinal hemorrhage Thyromegaly Abnormal EKG ADHD Anxiety Hypertension Bundle branch block Migraine Surgical History Hx of shoulder surgery History of cholecystectomy Family History (Updated 06/18/23 @ 11:01 by Nikki Brown LPN) Mother Colon cancer Gallbladder diseaseFather Cancer Heart diseaseGrandmother DiabetesAunt Colon cancerUncle Colon cancer Social History (Updated 12/22/23 @ 09:08 by Laurence Escalante) adopted: No household members: spouse housing: house number of children: 2 current occupational status: employed 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 Pt has been having difficultly with swallowing for 8 months now. It was not severe at first but has progressed. She will have episodes of food getting stuck in her esophagus at least once a week at this point. She will regurgitate the food and then be able to eat after. Prior to all this starting she had never had this or any heartburn symptoms. She has the most problems with doughy foods like bread and mashed potatoes but can also have issues with meats. SHe has never had issues with liquids. She has not tried any medications like a PPI or famotidine. She mentions that her brother has a hiatal hernia and she had pyloric stenosis as a baby. At this point she will do anything to be able to eat what she wants and would like to have an EGD. SHe denies all other GI symptoms. SHe is up do date on her screening colonoscopies. Barium Swallow in May 2023; abnormal ROS Const Constitutional: No anorexia, fatigue, fever(s), weight change or sleep problems Eyes Eyes: No change in vision ENT ENT: Positive for difficulty swallowing; No abnormal hearing, tongue swelling or throat swelling Resp Respiratory: No cough or shortness of breath Cardio Cardiology: No chest pain at rest, chest pain with exertion, shortness of breath or dyspnea on exertion Gastro GI: Positive for difficulty swallowing and vomiting Genitourinary-Female: No difficulty urinating or burning urination Musc Musculoskeletal: No joint pain, joint swelling, muscle weakness or decreased muscle mass Skin Skin: No hair loss in leg, yellowing of the eye, itchy eyes, rash, skin ulcer or skin swelling Neuro Neurology: No abnormal hearing, abnormal movements, confusion, unsteady gait/balance or memory loss Psych Psychiatric: No anxiety, No confusion and No memory loss Endo Endocrine: No fatigue or weight change Aller/Imm Allergy/Immunologic: No itchy eyes, throat swelling or tongue swelling Curly/Lymp Hematologic/Lymphatic: No easy bleeding, easy bruising or enlarged lymph nodes Exam Const General: cooperative and comfortable Nutritional Appearance: average body habitus and well nourished HENTX Head: normal to inspection Ears: hearing grossly normal bilaterally Nose: external nose normal Face and sinus: normal facial exam Eyes General: appearance normal, both eyes and all related structures Neck Neck: normal visual inspection Chest Chest palpation & inspection: normal inspection of the chest Resp Effort & Inspection: normal respiratory effort Cardio Palpation: normal PMI Rate: regular rate Rhythm: regular rhythm GI Inspection: normal to inspection Auscultation: normal bowel sounds Percussion: normal to percussion Palpation: no hepatosplenomegaly Skin General: no rashes or lesions noted Neuro General: patient alert Extrem General: normal to inspection Psych Affect: normal affect Assessment and Plan Assessment and Plan (1) Dysphagia: Status: Acute Plan: This is a new pt here today for evaluation of dysphagia to solids for 8 months now. She has no other GI symptoms or concerns today. She is up to date on her screening colonoscopies. She did have an abnormal barium esophagram in May 2023 but I am unable to see this report. She had pyloric stenosis as an . I discussed that the best diagnostic test will be an EGD as we can likely treat it with dilation at this same time. She can also start a PPI in the meantime. She declines as she is not great at taking medications. She is agreeable to having an EGD and just wants to be able to eat what she wants again. My differential diagnosis includes GERD, esophageal ring, esophageal web, or less likely malignancy. -EGD with dilation -Consider PPI I have examined the patient and the H&P has been reviewed. There are no clinical changes since date of exam.
--- NOTE | 2024-02-02 13:30 | EGD_PTH ---
PATIENT: GURDEEP VILA LOC: EN U#:[id number] AGE/SX: 53/F ROOM: RE02/02/[address]: Dr. Lan Nunez DO : 1970 BED: DIS: 02/02/2024 SPEC #: [id number] RECD: 02/02/24 17:57 STATUS: ELISEO RERamirez #: [id number] GUS: 02/02/24 13:[address]: Lan Nunez DEPT: SURGICAL PATHOLOGY RECD BY: Gisselle Castorena ENTERED: 02/03/24 09:37 SP TYPE: EGD BIOPSY JAY DR: Dr. Lyle Venegas DO Tissues: A - Gastric mucous membrane B - Duodenum, NOS C - Esophagus, NOS Procedures: Special Stain Group I Surgery Specimen Level IV Alcian Blue/PAS (control) HEADER OPERATION: EGD with biopsy PRE-OP DIAGNOSIS: Dysphagia TISSUE SUBMITTED: A- Gastric body biopsy, B- Duodenum biopsy, C- Distal esophagus biopsy MICROSCOPIC DIAGNOSIS A. Gastric body, biopsy: Mild chronic gastritis. See comment. B. Duodenum, biopsy: No pathologic change. C. Distal esophagus, biopsy: Gastroesophageal junction mucosa with mild chronic inflammation. No evidence of goblet cell metaplasia. See comment. 02/04/2024 COMMENT A. The results of immunohistochemistry for Helicobacter pylori will be reported separately ([id number]). C. Alcian blue/PAS stain with matched control supports the above diagnosis. MICROSCOPIC DESCRIPTION Slides are reviewed. GROSS DESCRIPTION A. Received in fixative is one container labeled with the patient's name and designated Gastric body biospy. The specimen consists of two irregular fragments of light hayden soft tissue that in aggregate measure 1.5 x 0.2 x 0.1 cm. The specimen is totally submitted in one cassette. B. Received in fixative is one container labeled with the patient's name and designated Duodenum biopsy. The specimen consists of one irregular fragment of light hayden soft tissue that measures 0.5 x 0.5 x 0.1 cm. The specimen is totally submitted in one cassette. C. Received in fixative is one container labeled with the patient's name and designated Distal esophagus biopsy. The specimen consists of one irregular fragment of light hayden soft tissue that measures 0.5 x 0.5 x 0.1 cm. The specimen is totally submitted in one cassette. 02/03/2024 TC:3 CPT:97882q4,36694
--- NOTE | 2024-02-02 13:30 | IMM_PTH ---
PATIENT: GURDEEP VILA LOC: EN U#:[id number] AGE/SX: 53/F ROOM: RE02/02/[address]: Dr. Lan Nunez DO : 1970 BED: DIS: 02/02/2024 SPEC #: [id number] RECD: 02/03/24 08:35 STATUS: ELISEO REQ #: [id number] GUS: 02/02/24 13:[address]: Lan Nunez DEPT: IMMUNOHISTOCHEMISTRY RECD BY: Bijan Dee ENTERED: 02/03/24 08:35 SP TYPE: IMMUNO OTHR DR: Dr. Lyle Venegas DO Tissues: A - Gastric mucous membrane Procedures: H Pylori (initial) PHYSICIAN & INSTITUTION [place] [id number] SPECIMEN INFORMATION: Tissue Source: A- Gastric body biopsy Clinical Info: Dysphagia Specimen Number: [id number] CPT code: 11195 METHODOLOGY: Deparaffinized sections of prefer/formalin-fixed tissue or PAP/DQ stained slides are incubated with monoclonal/polyclonal antibodies/oligonucleotide probes. Localization is made via biotin free immunoperoxidase method. Appropriate controls are performed and reacted as expected. Results on target cell population are indicated in the following table: RESULTS: ANTIBODY / CLONE RESULT Block A H Pylori (polyclonal) negative These tests were developed and their performance characteristics determined by [facility]. They may not have been cleared or approved by the U.S. Food and Drug Administration. The FDA has determined that such clearance or approval is not necessary. The above immunohistochemical/dualISH markers are ordered and reviewed by the Pathologist. INTERPRETATION: A. Gastric body, biopsy: Negative for Helicobacter pylori organisms. 02/04/2024
--- NOTE | 2024-02-02 13:33 | PCM.PRE.AN2 ---
ASA Classification* ASA Classification ASA Classification: 2 Assessment & Plan Anesthesia* Anesthesia Assessment Anesthesia Assessment: Discussed sedation and/or anesthesia options, risks, benefits, and alternatives with patient/parents/legal guardian/POA. Questions invited. The patient/parents/legal guardian/POA seems to understand and agrees to proceed with anesthesia plan. Reviewed the physical assessment, medical history, allergy history and patient home medications list prior to surgery/procedure/anesthetic and documented any changes. Performed airway and anesthesia risk assessments. Anesthesia Type Anesthesia Type: MAC History Source History Obtained from:: Patient and Chart Anesthesia Focused Assessment* Temperature: 98.6 F Pulse Rate: 86 Blood Pressure: 126/76 Respiratory Rate: 16 Pulse Ox: 100 Oxygen Delivery Method: Room Air Airway Assessment Mouth opens: >3 cm Mallampati Score: III Teeth Condition: Caps/Crowns (Right upper molar has a crown. It is tight.) Neck Range of motion (ROM): Full ROM Focused Labs Anesthesia Preop lab: CBC WBC 5.2 K/mm3 (4.4-11.0) 12/05/21 22:23 RBC 4.51 M/mm3 (4.2-5.4) 12/05/21 22:23 Hgb 13.2 g/dL (12.0-15.0) 12/05/21 22:23 Hct 38.8 % (37-47) 12/05/21 22:23 Plt Count 241 K/mm3 (150-450) 12/05/21 22:23 CHEMISTRY Potassium 3.4 mmol/L (3.5-5.1) L 12/05/21 22:23 Sodium 142 mmol/L (136-145) 12/05/21 22:23 BUN 8 mg/dL (7-18) 12/05/21 22:23 Creatinine 1.06 mg/dL (0.55-1.02) H 12/05/21 22:23 Glucose 106 mg/dL (74-106) 12/05/21 22:23 COAG Pre-Assessment Diagnosis/Proposed Procedure Planned Operative Procedure(s): Esophagogastroduodenoscopy Anesthesia History 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 When Was Last Pacemaker Check QUESTION #4 FULL TEXT: You/Your Family Experience fever (hyperthermia) with Anesthesia Last Oral Intake Last Oral intake: Last Oral Intake NPO since 21:00 02/02/24 12:59 Meds taken in AM with sips of Yes 02/02/24 12:59 water? Meds patient instructed to amlodipine-valsartan, 02/02/24 12:59 take am of surgery metoprolol PONV PONV - sign builder supervisor: PONV - sign builder supervisor Female Yes 01/27/24 11:50 HX of Motion Sickness Yes 01/27/24 11:50 HX of N/V After Surgery Yes 01/27/24 11:50 Non-Smoker Yes 01/27/24 11:50 Duration of Surgery greater No 01/27/24 11:50 than 60 minutes Number of Risk Factors 4 01/27/24 11:50 PONV Score Severe Risk 01/27/24 11:50 Height & Weight Height & Weight: Anesthesia: Height & Weight Height 5 ft 6 in 02/02/24 12:59 Weight: 89 kg 02/02/24 12:59 Body Mass Index (BMI) 31.6 02/02/24 12:59 Respiratory Assessment Respiratory Assessment - sign builder supervisor: Respiratory Tract Infection Hx - sign builder supervisor Hx Respiratory Tract Infection No 01/27/24 11:50 STOP Sleep Apnea STOP Sleep Apnea - sign builder supervisor: STOP Sleep Apnea - sign builder supervisor Hx Hypertension Yes: controlled with med 01/27/24 11:50 Hx Sleep Apnea No 01/27/24 11:50 CPAP BIPAP Do you snore loudly (louder No 01/27/24 11:50 than talking or can be heard Do you often feel tired/ No 01/27/24 11:50 fatigued/ sleepy during daytime? Has anyone observed you stop No 01/27/24 11:50 breathing during sleep? STOP Results Negative 01/27/24 11:50 QUESTION #5 FULL TEXT : Do you snore loudly (louder than talking or can be heard through closed doors)? Tobacco Use History Tobacco Use History - sign builder supervisor: Tobacco Use History - sign builder supervisor Tobacco Use Smoking Status Never smoker 01/27/24 11:50 Hx Tobacco Use No 01/27/24 11:50 Years Smoking Packs Smoked per Day Smoking Cessation Date was within the last 15 years Hx Smoking Cessation Date Hx Smoking Cessation Counseling Hematologic Medial History Hematologic Hx - sign builder supervisor: Hematologic Medical Hx - sensitometrist Hx of Blood Transfusion No 01/27/24 11:50 Hx of Transfusion in last 3 No 01/27/24 11:50 Months Date of Last Transfusion (if within last 3 months) Ever experience any problems No 01/27/24 11:50 with transfusion(s)? Specify any problems Hx of Preganancy in last 3 N/A 01/27/24 11:50 Months Nurse Filling Out Transfusion NBUCHER 01/27/24 11:50 & Questions: Date: 01/27/24 01/27/24 11:50 Time: 11:52 01/27/24 11:50 Patient unable to answer at this time (ie. confused, unrespo /Reproduction History /Reproductive History - sign builder supervisor: /Reproductive Hx- sign builder supervisor Hx Now Gestational Age (in weeks): EDC: Hx Hx Para Hx Section SAB No 01/27/24 11:50 PFSH Medical History Retinal hemorrhage, bilateral Intermittent diarrhea Dysphagia H/O echocardiogram Post-menopausal Rash Non-smoker Cardiology follow-up encounter Prolonged QT interval Palpitations Retinal hemorrhage Thyromegaly Abnormal EKG ADHD Anxiety Hypertension Bundle branch block Migraine Home Medications ?Medication ?Instructions ?Recorded ?Last Taken ?Type amlodipine 10 mg-valsartan 160 mg 10 - 160 tab PO DAILY 12/05/21 02/02/24 07:00 History tablet metoprolol succinate 25 mg 25 mg PO DAILY 12/05/21 02/02/24 07:00 History tablet,extended release 24 hr Allergy/AdvReac Type Severity Reaction Status Date / Time morphine Allergy Hives Verified 02/02/24 12:56 Family History Mother Colon cancer Gallbladder disease Father Cancer Heart disease Grandmother Diabetes Aunt Colon cancer Uncle Colon cancer Surgical History Hx of shoulder surgery History of cholecystectomy Social History adopted: No household members: spouse housing: house number of children: 2 current occupational status: employed 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 pets and animals: Yes pets and animals: dog(s) and horse(s) Smoking Status: Never smoker alcohol intake: current alcohol intake frequency: holidays/special occasions only Alcohol type: wine substance use type: does not use frequency: daily additional social history: - Jose Enrique Review of Systems (Anesthesia) ROS Narrative System reviewed and no additional complaints, except as documented.
--- NOTE | 2024-02-02 14:34 | PCM.POST.ANE ---
Anesthesia: Postop Eval I Current Vital Signs Temperature: 98.3 F Pulse Rate: 98 Blood Pressure: 90/65 Respiratory Rate: 16 Pulse Ox: 94 Oxygen Delivery Method: Room Air Assessment Airway patent: Yes Spontaneous unlabored respirations: Yes Mental status: Asleep nausea: No Vomiting: No Anesthesia Complication: No Fluid Hydration Crystalloid volume administer (ml): 30 Total IV fluid infused: 30 Progress Note Anesthesia document: Postop Eval 1 completed: Yes
--- NOTE | 2024-02-02 14:38 | OP.EGD_ITS ---
Patient Name: Namrata Vargas Procedure Date: 02/02/2024 2:11 PM Date of : 1970 Age: 53 Procedure: Upper GI endoscopy Indications: Functional Dyspepsia, Indigestion, Heartburn Providers: Lan Nunez DO Referring MD: Lyle Venegas Do Medicines: Monitored Anesthesia Care Patient Profile: This is a 53 year old female. Refer to note in patient chart for documentation of history and physical. Patient has symptoms of chronic dysphagia and chronic dyspepsia. Complications: No immediate complications. Procedure: Pre-Anesthesia Assessment: - Prior to the procedure, a History and Physical was performed, and patient medications and allergies were reviewed. The patient is competent. The risks and benefits of the procedure and the sedation options and risks were discussed with the patient. All questions were answered and informed consent was obtained. Patient identification and proposed procedure were verified by the physician in the pre-procedure area. Mental Status Examination: alert and oriented. Airway Examination: normal oropharyngeal airway and neck mobility. Respiratory Examination: clear to auscultation. CV Examination: normal. Prophylactic Antibiotics: The patient does not require prophylactic antibiotics. Prior Anticoagulants: The patient has taken no anticoagulant or antiplatelet agents. ASA Grade Assessment: III - A patient with severe systemic disease. After reviewing the risks and benefits, the patient was deemed in satisfactory condition to undergo the procedure. The anesthesia plan was to use monitored anesthesia care (MAC). Immediately prior to administration of medications, the patient was re-assessed for adequacy to receive sedatives. The heart rate, respiratory rate, oxygen saturations, blood pressure, adequacy of pulmonary ventilation, and response to care were monitored throughout the procedure. The physical status of the patient was re-assessed after the procedure. After obtaining informed consent, the endoscope was passed under direct vision. Throughout the procedure, the patient's blood pressure, pulse, and oxygen saturations were monitored continuously. The Endoscope was introduced through the mouth, and advanced to the second part of duodenum. The upper GI endoscopy was accomplished without difficulty. The patient tolerated the procedure well. Scope In: 2:21:52 PM Scope Out: 2:26:01 PM Total Procedure Duration Time 0 hours 4 minutes 9 seconds Findings: LA Grade B (one or more mucosal breaks greater than 5 mm, not extending between the tops of two mucosal folds) esophagitis with no bleeding was found 38 to 40 cm from the incisors. Biopsies were taken with a cold forceps for histology. Verification of patient identification for the specimen was done. Estimated blood loss was minimal. A small hiatal hernia was present. Diffuse moderate inflammation characterized by erosions, erythema and friability was found in the entire examined stomach. Biopsies were taken with a cold forceps for histology. Verification of patient identification for the specimen was done. Estimated blood loss was minimal. Localized mild inflammation characterized by erythema and friability was found in the duodenal bulb. Biopsies were taken with a cold forceps for histology. Verification of patient identification for the specimen was done. Estimated blood loss was minimal. A non-obstructing Schatzki ring was found at the gastroesophageal junction. Impression: - LA Grade B reflux esophagitis with no bleeding. Biopsied. - Small hiatal hernia. - Bile gastritis. Biopsied. - Chronic duodenitis. Biopsied. Recommendation: - Discharge patient to home. - Resume previous diet. - Use Protonix (pantoprazole) 40 mg PO BID. - Continue present medications. Procedure Code(s): --- Professional --- 24652, Esophagogastroduodenoscopy, flexible, transoral; with biopsy, single or multiple CPT copyright 2021 [employer]. All rights reserved. The codes documented in this report are preliminary and upon travel consultant review may be revised to meet current compliance requirements. Lan Nunez DO 02/02/2024 2:38:05 PM This report has been signed electronically. Number of Addenda: 0 Note Initiated On: 02/02/2024 2:11 PM
--- NOTE | 2024-02-02 14:39 | OP.CCLET_ITS ---
02/02/2024 Lyle Venegas Do Re : Upper GI endoscopy procedure for Namrata Vargas Dear Rubi This procedure was performed on Friday, February 02, 2024. My impressions and recommendations are as follows: Impressions : - LA Grade B reflux esophagitis with no bleeding. Biopsied. - Small hiatal hernia. - Bile gastritis. Biopsied. - Chronic duodenitis. Biopsied. Recommendations : - Discharge patient to home. - Resume previous diet. - Use Protonix (pantoprazole) 40 mg PO BID. - Continue present medications. My findings are described in the full procedure note, which is enclosed. If I can be of further assistance, please feel free to contact me at . Sincerely, Lan Nunez, 02/02/2024 2:38:05 PM This report has been signed electronically.
--- NOTE | 2024-02-02 16:54 | PCM.POSTANE2 ---
Anesthesia Postop Eval I Sum Postop Eval Completion status Anesthesia document: Postop Eval 1 completed: Yes Anesthesia Postop Eval I Summary Anesthesia Postop Eval I Summary: Anesthesia Postop Eval I: Assessment Summary Airway patent Yes 02/02/24 14:35 [email or web address] Spontaneous unlabored Yes 02/02/24 14:35 [email or web address] respirations Mental status Asleep 02/02/24 14:35 [email or web address] nausea No 02/02/24 14:35 [email or web address] Vomiting No 02/02/24 14:35 [email or web address] Anesthesia Postop Eval I: Fluid Summary Crystalloid volume administer 30 02/02/24 14:35 [email or web address] (ml) Colloids volume administered ( ml) Blood Product volume administered (ml) Total IV fluid infused 30 02/02/24 14:35 [email or web address] Anesthesia Postop Eval I: Summary Notes Anesthesia Complication No 02/02/24 14:35 [email or web address] Anesthesia Complication Comment: Post-operative progress note Anesthesia: Postop Eval II Evaluation Mental status: Awake and Calm Pain Level: 0 nausea: No Vomiting: No Complications Anesthesia Complication: No
== END 2024-02-02 15:22 | disposition home or self-care (01) ==
LOC: EN 12:36 → AC 12:36
PROVIDERS: PCP Student in an Organized Health Care Education/Training Program; Referring Provider Student in an Organized Health Care Education/Training Program; Visit Provider Internal Medicine Gastroenterology
PROC: 0DJ08ZZ Inspection of Upper Intestinal Tract, Via Natural or Artificial Opening Endoscopic (ICD-10-PCS; CPT 43235; principal; 2024-02-02 13:25)
DX: R13.10 Dysphagia, unspecified (principal); K44.9 Diaphragmatic hernia without obstruction or gangrene; K29.70 Gastritis, unspecified, without bleeding; Z80.0 Family history of malignant neoplasm of digestive organs; K29.80 Duodenitis without bleeding; I10 Essential (primary) hypertension; K21.00 Gastro-esophageal reflux disease with esophagitis, without bleeding; K22.2 Esophageal obstruction
CPT/HCPCS: 43239; 88305; 88312; 88342; A4216; J2405

== ENCOUNTER → 2024-05-13 | Outpatient (CLI) | payer OTHER, BC, SELFPAY ==
[2024-05-13 10:34] LABS: Absolute Lymphocyte Count 0.87 X10^3/uL (0.83-4.51); Absolute Neutrophil Count 6.9 X10^3/uL (2.0-7.7); Basophil# 0.08 X10^3/uL; Basophil% 0.9 % (0-1); Eosinophil# 0.06 X10^3/uL; Eosinophils% 0.7 % (0-5); Lymphocyte # 0.87 X10^3/ul (0.83-4.51); Lymphocyte % 9.9 % (19-41); Mean Corp Hgb Conc 31.8 g/dL (32-36); Mean Corpuscular Hgb 26.9 pg (27.0-32.0); Mean Corpuscular Volume 84.6 fL (81-99); Mean Platelet Vol. 10.3 fl (6.2-12.0); Monocyte# 0.84 X10^3/uL; Monocyte% 9.6 % (0-10); NRBC Flagged by Analyzer 0 % (0-5); Neutrophil # 6.89 X10^3/uL (2.7-7.7); Neutrophil % 78.6 % (47-70); Platelet Count 523 K/mm3 (150-450); RBC Distribution Width CV 14.3 % (11.6-14.6); White Blood Count 8.8 K/mm3 (4.4-11.0)
[2024-05-13 10:39] LABS: Erythrocyte Sedimentation Rate 11 mm/hr (0-30)
[2024-05-13 12:06] LABS: ALB/GLOB Ratio 1.1 RATIO (0.9-2.4); AST(SGOT) 43 U/L (<=31); Alanine Aminotransfer ALT/SGPT 7 U/L (<=34); Albumin, Serum 3.9 g/dL (3.5-5.0); Alkaline Phosphatase 153 U/L (35-104); Amylase 145 U/L (28-100); Anion Gap 11 (5-15); BUN 7 mg/dL (4-19); BUN/Creat Ratio 8.1 RATIO (10-20); Calcium,Total 9.1 mg/dL (7.6-11.0); Chloride 104 mmol/L (98-108); Creatinine, Serum 0.92 mg/dL (0.70-1.20); EST Glomerular Filtration Rate 73 (>60); Globulin 3.6 g/dL (2.2-4.2); Glucose 100 mg/dL (70-99); Lipase 17 U/L (13-75); Potassium 3.7 mmol/L (3.3-5.1); Protein, Total 7.5 g/dL (5.9-8.4); Sodium Level 139 mmol/L (133-145); Total Bilirubin 0.53 mg/dL (0.00-1.30)
[2024-05-17 15:08] LABS: Gastrin, Serum 10 pg/mL (0-115)
== END | disposition home or self-care (01) ==
LOC: LAB 10:15
PROVIDERS: PCP Student in an Organized Health Care Education/Training Program; Referring Provider Internal Medicine Gastroenterology; Visit Provider Internal Medicine Gastroenterology
DX: R10.9 Unspecified abdominal pain (principal)
CPT/HCPCS: 36415; 80053; 82150; 82941; 83690; 85025; 85652; 86140

== ENCOUNTER 2024-05-14 18:06 | Emergency (ER) | payer OTHER, BC, SELFPAY ==
[2024-05-14 18:06] VITALS: BP 118/87; PULSE 100; RESP 18; TEMP 36.1; O2SAT 99; BMI 28.5
--- NOTE | 2024-05-14 18:20 | CT_ITS ---
PROCEDURE: CT ABDOMEN/PELVIS w IV CONT ONLY 05/14/2024 REASON FOR EXAM: Abdominal pain for 3 months. TECHNIQUE: Abdomen CT without and with intravenous contrast. Coronal and Sagittal reconstruction series were provided. PATIENT PREPARATION: Per protocol ORAL CONTRAST TYPE: None. AMOUNT: 0 mL CONTRAST: Isovue 370 VOLUME: 96mL One or more dose reduction techniques were used (e.g., Automated exposure control, adjustment of the mA and/or kV according to patient size, use of iterative reconstruction technique. RADIATION DOSE SUMMARY: CTDlvol: 34.18 mGy DLP: 1146.60 mGycm COMPARISON: None. FINDINGS: Lung bases: Bilateral pleural effusions, more prominent on the right. A small 1.1 x 7.7 mm lymph node in the anterior mediastinum, axial image 1 Liver: Several small hypodense nodules scattered throughout the liver measuring 0.7 to 0.9 cm. Mildly prominent hepatic ducts and common bile duct. Gallbladder: Surgically absent. Spleen: Unremarkable. Pancreas: No masses. Normal attenuation. Mildly prominent pancreatic duct. Adrenals: Unremarkable. Kidneys: Unremarkable. Bladder: Unremarkable. Reproductive Organs: Multiple hypodense nodules involving the uterine wall, largest measuring 2.6 cm in long axis, sagittal image 85. Bowel: Small stationary hiatal hernia. Prominent jejunal loops of small bowel. Appendix: No evidence of appendicitis Lymph nodes: Extensive lymphadenopathy as noted below. Vasculature: Unremarkable. Peritoneum / Retroperitoneum: Large heterogeneous, multi loculated/septated mass in the abdomen and pelvis, central and to the right in position. This mass has attenuation ranging from 30-60 Hounsfield units and measures 22.0 x 11.4 x 12.0 cm. Areas of vascular enhancement are noted in the more solid component in the pelvis. Several soft tissue nodules are seen in the anterior mesentery, largest measuring 1.2 cm on axial image 46. Multiple presacral lymph nodes are also noted, largest measuring 0.9 cm, axial image 94. A large soft tissue nodule along the right anterior pelvic sidewall, axial image 106 measuring 1.8 cm. Prominent soft tissue nodules are seen in the right subhepatic space, largest measuring 1.9 x 0.9 cm, axial image 41. Retroperitoneal adenopathy, largest lymph node in the left para-aortic region measuring 2.5 x 2.0 cm, axial image 56. Moderate intra-abdominal ascites. Bones: Unremarkable. CT/Abdomen/Pelvis W IV Cont ONLY IMPRESSION: 1. A large heterogeneous and lobulated mass in the abdomen and pelvis as descr ibed above. Consider ovarian carcinoma. 2. Retroperitoneal and mesenteric adenopathy are demonstrated. 3. Suspicion of serosal metastases involving the uterus. 4. Hypodense nodules scattered throughout the liver concerning for metastases. 5. Moderate ascites. 6. Bilateral pleural effusions, more prominent on the right. 7. Mild ileus. 8. Stationary hiatal hernia. 9. Status post cholecystectomy. 10. Mildly dilated intrahepatic, extrahepatic, and pancreatic ducts most likel y compensatory from cholecystectomy. Reading Location: [facility]
--- NOTE | 2024-05-14 18:22 | ED.VIS.GI ---
HPI HPI - GI History of Present Illness Chief Complaint: Abd Pain Narrative Narrative: 54-year-old female past medical history of hypertension presents with epigastric abdominal pain that she has had for about 3 months. She relates history that she was seen by Dr. 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 She states that she was told that she has pancreatitis and that her inflammatory markers were high on the blood work that he had done yesterday. She states that she gets epigastric pain that sometimes is worse with eating. She has not eaten anything today. She has had decreased appetite. Additionally, she states that she has diarrhea. She states that she was told that if she still has pain like when he saw her yesterday, that she should come to the emergency department. [facility] Medical History Retinal hemorrhage, bilateral Intermittent diarrhea Dysphagia H/O echocardiogram Post-menopausal Rash Non-smoker Cardiology follow-up encounter Prolonged QT interval Palpitations Retinal hemorrhage Thyromegaly Abnormal EKG ADHD Anxiety Hypertension Bundle branch block Migraine Home Medications ?Medication ?Instructions ?Recorded ?Last Taken ?Type amlodipine 10 mg-valsartan 160 mg 10 - 160 tab PO DAILY 12/05/21 02/02/24 07:00 History tablet metoprolol succinate 25 mg 25 mg PO DAILY 12/05/21 02/02/24 07:00 History tablet,extended release 24 hr cholestyramine (with sugar) 4 gram 4 g PO HS #378 grams 05/13/24 Unknown Rx oral powder omeprazole 20 mg capsule,delayed 20 mg PO BID #60 caps 05/13/24 Unknown Rx release scopolamine base 1 mg over 3 days 1 patch transdermal Q3D #10 ea 05/13/24 Unknown Rx transdermal patch Allergy/AdvReac Type Severity Reaction Status Date / Time morphine Allergy Hives Verified 05/14/24 18:06 Family History Mother Colon cancer Gallbladder disease Father Cancer Heart disease Grandmother Diabetes Aunt Colon cancer Uncle Colon cancer Surgical History Hx of shoulder surgery History of cholecystectomy Social History (Reviewed 05/14/24 @ 18:56 by Ellie Yung adopted: No household members: spouse housing: house number of children: 2 current occupational status: employed 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 Cardiovascular: No chest pain. No palpitations. Respiratory: No cough, no shortness of breath. Abdominal: Positive epigastric abdominal pain. Positive nausea. Positive vomiting after eating intermittently. Genitourinary: No dysuria. No hematuria. EXAM Physical Exam Narrative Exam Narrative: Afebrile. Vital signs noted. Nontoxic-appearing. Cardiovascular examination reveals a regular rate and rhythm. Lungs are clear to auscultation bilaterally. The abdomen is soft with tenderness to palpation in the epigastrium, no guarding or rebound. Positive bowel sounds. Neurological examination is nonfocal and nonlateralizing. Const Vital Signs: 05/14/24 18:06 Temperature 97 F L Temperature Source Temporal Pulse Rate 100 Respiratory Rate 18 Blood Pressure 118/87 H Blood Pressure Mean 97 Pulse Ox 99 Oxygen Delivery Method Room Air MDM MDM MDM Narrative Medical decision making narrative: Differential diagnosis includes acute pancreatitis versus gastritis versus nonspecific abdominal pain. I reviewed her prior laboratory work and her outpatient record. Her laboratory work showed that she had normal white count. Her lipase was normal at 17 but amylase elevated at 145. She states that she was told that her inflammatory markers were supposed to be 3 but hers was elevated at 35. In review, it is her CRP that is elevated. I will repeat these additional laboratories, and obtain CT imaging to look for inflammation around the pancreas. Patient will be discussed with Dr. Nunez as she is an established patient after workup. She was given fentanyl and ondansetron for analgesia. I reviewed her laboratory work and her prior outpatient records. There has not been significant change in her amylase which is slightly elevated and her CRP remains elevated as well. Lipase is normal. I reviewed the radiology report of the CT of the abdomen pelvis. There is a large heterogeneous and lobulated mass in the abdomen and pelvis with concern for ovarian carcinoma. There are retroperitoneal and mesenteric adenopathy with suspicion of serosal metastases involving the uterus. Hypodense nodules are scattered throughout the liver concerning for metastases that she has moderate ascites. She does have bilateral pleural effusions as well. It looks as if she has a mild ileus which may be the cause of her nausea and vomiting as well. I had discussed the patient with Dr. Nunez initially, and it was felt that this is not an acute pancreatitis. Patient states that she has been seen by [facility], as recently as a few months ago. While this was not found in the ED provider notes, she had been seen by them in 2022. I did discuss the patient with Dr. Marianela Eaton. She recommended transfer to [facility], and has come to the emergency department to discuss the diagnosis and CT findings with the patient as well as the need for transfer. I discussed the patient with the [facility] transfer line and she has been accepted by gynecological oncology, Dr. Julien. They do have an available bed and she was transferred in stable condition for further evaluation and treatment. History & Record Review Discussion w/independent historian: Patient and Family Additional record(s) reviewed:: Prior outpatient record and Prior labs Radiography Diagnostic Testing: Clinical Impression(s) from Imaging Studies Abdomen/Pelvis CT 05/14/24 18:20 IMPRESSION: 1. A large heterogeneous and lobulated mass in the abdomen and pelvis as described above. Consider ovarian carcinoma. 2. Retroperitoneal and mesenteric adenopathy are demonstrated. 3. Suspicion of serosal metastases involving the uterus. 4. Hypodense nodules scattered throughout the liver concerning for metastases. 5. Moderate ascites. 6. Bilateral pleural effusions, more prominent on the right. 7. Mild ileus. 8. Stationary hiatal hernia. 9. Status post cholecystectomy. 10. Mildly dilated intrahepatic, extrahepatic, and pancreatic ducts most likely compensatory from cholecystectomy. Reading Location: [facility] Management Discussion w/another healthcare provider: [employer] (Dr. Nunez, Dr. Marianela Eaton, Dr. Julien ([facility])) Discharge Plan Triage Chief Complaint: Abd Pain ED Provider: John Gold Dx/Rx/DC Orders Prescriptions: No Action omeprazole 20 mg capsule,delayed release(DR/EC) 20 mg PO BID Qty: 60 3RF scopolamine base 1 mg over 3 days patch 3 day 1 patch transdermal Q3D Qty: 10 0RF cholestyramine (with sugar) 4 gram powder 4 g PO HS Qty: 378 0RF Rx Instructions: no meds 1 hr before/4-6 hr after dose metoprolol succinate 25 mg tablet extended release 24 hr 25 mg PO DAILY Patient Comments: take 1 tablet by mouth once daily amlodipine-valsartan 10-160 mg tablet 10 - 160 tab PO DAILY Patient Comments: take 1 tablet by mouth once daily Primary Care Provider: Lyle Venegas Referrals: Lyle Venegas DO [Primary Care Provider] - Print Language: Namibian Disposition Disposition: Acute Care Hospital Discharge Location: [facility] Discharge Date/Time: 05/14/24 22:45
[2024-05-14] MEDS: 0.9% Normal Saline (1000mL) 1,000 ML 999 ML IV (18:27)
[2024-05-14] MEDS: fentaNYL 100 MCG/2 ML Ampul 50 MCG IV ×2 (18:28→20:17)
[2024-05-14] MEDS: Ondansetron 4 MG/2 ML Vial IV (18:28)
[2024-05-14 18:32] LABS: Absolute Lymphocyte Count 1.06 X10^3/uL (0.83-4.51); Absolute Neutrophil Count 6.8 X10^3/uL (2.0-7.7); Basophil# 0.09 X10^3/uL; Eosinophil# 0.11 X10^3/uL; Eosinophils% 1.2 % (0-5); Hematocrit 42.7 % (37-47); Hemoglobin 13.6 g/dL (12.0-15.0); Lymphocyte # 1.06 X10^3/ul (0.83-4.51); Lymphocyte % 11.7 % (19-41); Mean Corp Hgb Conc 31.9 g/dL (32-36); Mean Corpuscular Hgb 26.9 pg (27.0-32.0); Mean Corpuscular Volume 84.4 fL (81-99); Mean Platelet Vol. 10.5 fl (6.2-12.0); Monocyte# 0.94 X10^3/uL; Monocyte% 10.4 % (0-10); NRBC Flagged by Analyzer 0 % (0-5); Neutrophil # 6.82 X10^3/uL (2.7-7.7); Neutrophil % 75.3 % (47-70); Platelet Count 494 K/mm3 (150-450); RBC Distribution Width CV 14.4 % (11.6-14.6); RBC Distribution Width SD 44.2 fl (35.1-43.9); Red Blood Count 5.06 M/mm3 (4.2-5.4); White Blood Count 9.1 K/mm3 (4.4-11.0)
[2024-05-14 19:36] LABS: AST(SGOT) 48 U/L (<=31); Alanine Aminotransfer ALT/SGPT 7 U/L (<=34); Albumin, Serum 3.7 g/dL (3.5-5.0); Alkaline Phosphatase 146 U/L (35-104); Anion Gap 14 (5-15); BUN 7 mg/dL (4-19); BUN/Creat Ratio 8.2 RATIO (10-20); Calcium,Total 9.2 mg/dL (7.6-11.0); Carbon Dioxide 21.1 mmol/L (21.0-32.0); Chloride 103 mmol/L (98-108); Creatinine, Serum 0.85 mg/dL (0.70-1.20); EST Glomerular Filtration Rate 80 (>60); Estimated Creatinine Clearance 79.03 ml/min (50-250); Globulin 3.7 g/dL (2.2-4.2); Glucose 102 mg/dL (70-99); Lipase 16 U/L (13-75); Protein, Total 7.4 g/dL (5.9-8.4); Sodium Level 137 mmol/L (133-145); Total Bilirubin 0.46 mg/dL (0.00-1.30)
[2024-05-14 19:48] LABS: Amylase 131 U/L (28-100)
[2024-05-14 20:06] VITALS: BP 131/98; PULSE 78
[2024-05-14 21:24] VITALS: BP 131/98; PULSE 78; RESP 20; TEMP 36.8; O2SAT 99
== END 2024-05-14 22:45 | disposition short-term general hospital (02) ==
LOC: ED 18:37
PROVIDERS: Emergency Provider Emergency Medicine; PCP Student in an Organized Health Care Education/Training Program; Referring Provider Emergency Medicine; Visit Provider Emergency Medicine
DX: R10.13 Epigastric pain (principal); K56.7 Ileus, unspecified; I10 Essential (primary) hypertension; Z90.49 Acquired absence of other specified parts of digestive tract; R11.2 Nausea with vomiting, unspecified; R19.00 Intra-abdominal and pelvic swelling, mass and lump, unspecified site; J90 Pleural effusion, not elsewhere classified; K44.9 Diaphragmatic hernia without obstruction or gangrene
CPT/HCPCS: 74177; 80053; 82150; 83690; 85025; 86140; 96361; 96374; 96375; 96376; 99284; Q9967; A4216; J2405

== ENCOUNTER → 2024-05-23 | Outpatient (CLI) | payer OTHER, BC, SELFPAY ==
[2024-05-23 15:38] LABS: Absolute Lymphocyte Count 0.74 X10^3/uL (0.83-4.51); Absolute Neutrophil Count 11.6 X10^3/uL (2.0-7.7); Basophil# 0.07 X10^3/uL; Basophil% 0.5 % (0-1); Eosinophil# 0.06 X10^3/uL; Eosinophils% 0.4 % (0-5); Hematocrit 40.8 % (37-47); Hemoglobin 13.2 g/dL (12.0-15.0); Lymphocyte # 0.74 X10^3/ul (0.83-4.51); Lymphocyte % 5.3 % (19-41); Mean Corp Hgb Conc 32.4 g/dL (32-36); Mean Corpuscular Hgb 27.3 pg (27.0-32.0); Mean Corpuscular Volume 84.3 fL (81-99); Mean Platelet Vol. 11.2 fl (6.2-12.0); Monocyte# 1.51 X10^3/uL; Monocyte% 10.7 % (0-10); NRBC Flagged by Analyzer 0 % (0-5); Neutrophil # 11.61 X10^3/uL (2.7-7.7); Neutrophil % 82.5 % (47-70); POSITIVE DIFFERENTIAL YES; Platelet Count 447 K/mm3 (150-450); RBC Distribution Width CV 14.3 % (11.6-14.6); RBC Distribution Width SD 43.9 fl (35.1-43.9); Red Blood Count 4.84 M/mm3 (4.2-5.4); White Blood Count 14.1 K/mm3 (4.4-11.0)
[2024-05-23 15:41] LABS: Differential Indicated SCAN CRITERIA MET
[2024-05-23 16:17] LABS: Platelet Estimate A (ADEQ); Platelet Morphology GIANT
[2024-05-23 16:18] LABS: Polychromasia 1+
[2024-05-23 18:58] LABS: ALB/GLOB Ratio 0.9 RATIO (0.9-2.4); AST(SGOT) 67 U/L (<=31); Alanine Aminotransfer ALT/SGPT 13 U/L (<=34); Albumin, Serum 3.2 g/dL (3.5-5.0); Alkaline Phosphatase 151 U/L (35-104); Anion Gap 17 (5-15); BUN 9 mg/dL (4-19); BUN/Creat Ratio 9.3 RATIO (10-20); Calcium,Total 8.7 mg/dL (7.6-11.0); Carbon Dioxide 22.6 mmol/L (21.0-32.0); Chloride 99 mmol/L (98-108); Creatinine, Serum 0.92 mg/dL (0.70-1.20); EST Glomerular Filtration Rate 73 (>60); Globulin 3.7 g/dL (2.2-4.2); Glucose 102 mg/dL (70-99); Potassium 3.5 mmol/L (3.3-5.1); Protein, Total 6.9 g/dL (5.9-8.4); Sodium Level 139 mmol/L (133-145); Total Bilirubin 0.55 mg/dL (0.00-1.30)
[2024-06-15 10:50] LABS: Pathologist Review Reviewed
== END | disposition home or self-care (01) ==
LOC: LAB 14:24
PROVIDERS: PCP Student in an Organized Health Care Education/Training Program; Referring Provider Student in an Organized Health Care Education/Training Program; Visit Provider Student in an Organized Health Care Education/Training Program
DX: C56.3 Malignant neoplasm of bilateral ovaries (principal)
CPT/HCPCS: 36415; 80053; 85025; 86304

== ENCOUNTER 2024-06-13 11:59 | Outpatient (RCR) | payer OTHER, BC, SELFPAY ==
[2024-06-13 13:00] LABS: Absolute Lymphocyte Count 0.99 X10^3/uL (0.83-4.51); Absolute Neutrophil Count 3.6 X10^3/uL (2.0-7.7); Basophil% 1.8 % (0-1); Eosinophil# 0.08 X10^3/uL; Eosinophils% 1.4 % (0-5); Hematocrit 38.8 % (37-47); Hemoglobin 12.2 g/dL (12.0-15.0); Lymphocyte # 0.99 X10^3/ul (0.83-4.51); Lymphocyte % 17.7 % (19-41); Mean Corp Hgb Conc 31.4 g/dL (32-36); Mean Corpuscular Hgb 26.2 pg (27.0-32.0); Mean Corpuscular Volume 83.3 fL (81-99); Mean Platelet Vol. 10.6 fl (6.2-12.0); Monocyte% 14.3 % (0-10); NRBC Flagged by Analyzer 0 % (0-5); Neutrophil # 3.57 X10^3/uL (2.7-7.7); Neutrophil % 64.1 % (47-70); Platelet Count 518 K/mm3 (150-450); RBC Distribution Width CV 15.6 % (11.6-14.6); RBC Distribution Width SD 46.6 fl (35.1-43.9); Red Blood Count 4.66 M/mm3 (4.2-5.4); White Blood Count 5.6 K/mm3 (4.4-11.0)
[2024-06-13 13:58] LABS: AST(SGOT) 32 U/L (<=31); Alanine Aminotransfer ALT/SGPT 15 U/L (<=34); Albumin, Serum 3.6 g/dL (3.5-5.0); Alkaline Phosphatase 113 U/L (35-104); Anion Gap 12 (5-15); BUN 7 mg/dL (4-19); BUN/Creat Ratio 9.5 RATIO (10-20); Calcium,Total 9.5 mg/dL (7.6-11.0); Carbon Dioxide 23.9 mmol/L (21.0-32.0); Chloride 108 mmol/L (98-108); EST Glomerular Filtration Rate 101 (>60); Globulin 3.8 g/dL (2.2-4.2); Glucose 100 mg/dL (70-99); Potassium 3.5 mmol/L (3.3-5.1); Protein, Total 7.4 g/dL (5.9-8.4); Sodium Level 143 mmol/L (133-145); Total Bilirubin 0.31 mg/dL (0.00-1.30)
== END 2024-06-29 18:00 | disposition home or self-care (01) ==
LOC: LAB 11:59
PROVIDERS: PCP Student in an Organized Health Care Education/Training Program; Referring Provider Nurse Practitioner Adult Health; Visit Provider Nurse Practitioner Adult Health
DX: C56.3 Malignant neoplasm of bilateral ovaries (principal)
CPT/HCPCS: 36415; 80053; 85025; 86304

== ENCOUNTER 2024-07-04 11:21 | Outpatient (RCR) | payer OTHER, BC, SELFPAY ==
[2024-07-04 11:44] LABS: Absolute Lymphocyte Count 0.82 X10^3/uL (0.83-4.51); Absolute Neutrophil Count 1.9 X10^3/uL (2.0-7.7); Basophil# 0.03 X10^3/uL; Basophil% 0.9 % (0-1); Eosinophil# 0.04 X10^3/uL; Eosinophils% 1.2 % (0-5); Hematocrit 37.2 % (37-47); Hemoglobin 12.1 g/dL (12.0-15.0); Lymphocyte # 0.82 X10^3/ul (0.83-4.51); Lymphocyte % 24.8 % (19-41); Mean Corp Hgb Conc 32.5 g/dL (32-36); Mean Corpuscular Hgb 27.6 pg (27.0-32.0); Mean Corpuscular Volume 84.9 fL (81-99); Mean Platelet Vol. 9.5 fl (6.2-12.0); Monocyte% 15.2 % (0-10); NRBC Flagged by Analyzer 0 % (0-5); Neutrophil % 57.6 % (47-70); Platelet Count 221 K/mm3 (150-450); RBC Distribution Width CV 19.6 % (11.6-14.6); RBC Distribution Width SD 59.1 fl (35.1-43.9); Red Blood Count 4.38 M/mm3 (4.2-5.4); White Blood Count 3.3 K/mm3 (4.4-11.0)
[2024-07-04 12:22] LABS: ALB/GLOB Ratio 1.3 RATIO (0.9-2.4); AST(SGOT) 31 U/L (<=31); Alanine Aminotransfer ALT/SGPT 32 U/L (<=34); Alkaline Phosphatase 114 U/L (35-104); Anion Gap 10 (5-15); BUN 6 mg/dL (4-19); Calcium,Total 9.9 mg/dL (7.6-11.0); Carbon Dioxide 24.8 mmol/L (21.0-32.0); Chloride 107 mmol/L (98-108); Creatinine, Serum 0.87 mg/dL (0.70-1.20); EST Glomerular Filtration Rate 78 (>60); Globulin 3.1 g/dL (2.2-4.2); Glucose 112 mg/dL (70-99); Potassium 3.9 mmol/L (3.3-5.1); Sodium Level 142 mmol/L (133-145); Total Bilirubin 0.37 mg/dL (0.00-1.30)
== END 2024-07-04 18:00 | disposition home or self-care (01) ==
LOC: LAB 11:21
PROVIDERS: PCP Student in an Organized Health Care Education/Training Program; Referring Provider Nurse Practitioner Adult Health; Visit Provider Nurse Practitioner Adult Health
DX: C56.3 Malignant neoplasm of bilateral ovaries (principal)
CPT/HCPCS: 36415; 80053; 85025; 86304